=== PATIENT | male | born 1940 | race Caucasian/White ===

== ENCOUNTER 2019-09-02 12:30 | Inpatient (IN) | payer MEDICARE ==
[~2019-09-02] VITALS: Ht 182 cm; Wt 85.0 kg
[2019-09-02] VITALS (9 sets, daily range): BP systolic 109–144; BP diastolic 53–99
[~2019-09-02 12:30] MED LIST: ASPI325T32 PO; CARV12.53 PO; CEFU500T5 PO; FURO20TA4 PO; PRAV10TA PO; RAMI5CAP PO
[2019-09-02] MEDS ORDERED: ACETAMINOPHEN 325 MG TABLET PO PRN (14:15)
[2019-09-02] MEDS ORDERED: CATHETER FLUSH 10 ML SYR IV PRN (14:15)
[2019-09-02] MEDS ORDERED: hydrALAZINE (APESOLINE) 20 MG/ML VIAL IV PRN (14:15)
[2019-09-02] MEDS ORDERED: ONDANSETRON 4 MG/2 ML (SDV) Z0FRAN IV PRN (14:15)
[2019-09-02] MEDS ORDERED: BISACODYL 10 MG SUPP (DULCOLAX) PR PRN (14:15)
[2019-09-02] MEDS: ENOXAPARIN 40 MG/0.4 ML (LOVENOX) SYR SC SCH (14:15)
[2019-09-02] MEDS ORDERED: ONDANSETRON 4 MG (ZOFRAN) ORAL DISSOLVE TAB PO PRN (14:15)
[2019-09-02] MEDS ORDERED: polyethylene glycoL POWDER 17 GM (MIRALAX) PACK PO PRN (14:15)
[2019-09-02] MEDS ORDERED: ANTACID SUSP 30 ML UDC (MYLANTA) PO PRN (14:15)
[2019-09-02] MEDS ORDERED: MELATONIN 3 MG TABLET PO PRN (14:15)
--- NOTE | 2019-09-02 14:36 | History & Physical-Hospitalist ---
History of Present Illness HPI/Chief Complaint Rashawn Espinoza is an 79 year old male with PMH HTN who awoke this morning and felt "uncoordinated". He then noticed that his speech was abnormal. He went to the [place] ER and was found to have a likely acute ischemic stroke on CT scan. He was not a candidate for tPA due to unknown time of onset. He was transferred to [facility] for further evaluation and treatment. Upon arrival, his symptoms have resolved. He denies any dizziness or vertigo. He denies any vision changes. He denies any focal weakness. He denies any sensory deficits. He denies any speech difficulties. He denies fevers and chills. He denies dyspnea and cough. He denies chest pain and palpitations. He denies abdominal pain, nausea, vomiting, and diarrhea. He denies dysuria. He is a nonsmoker, nondrinker, and does not use illicit drugs. He reports that his grandmother had a stroke. He is unsure of the medications he takes, but says they are all for high blood pressure and heart failure. He does not take aspirin or a cholesterol medication. Source: patient Exam Limitations: no limitations Date Seen 09/02/19 Time Seen by a Provider: 14:00 Attending Physician Kassie Kim MD PCP Chalino Thomas MD Referring Physician Date of Admission Sep 02, 2019 at 13:37 Home Medications & Allergies Home Medications Reviewed patient Home Medication Reconciliation performed by pharmacy medication reconciliations account technician and/or nursing. Patients Allergies have been reviewed. Allergies Allergies Coded Allergies Zolpidem (Unverified Adverse Reaction, Severe, SEVERE AGITATION AND CONFUSION, 01/02/14) Past Pawmiqj-Ftuxjo-Mvvpxo Hx Past Med/Social Hx: Reviewed Nursing Past Med/Soc Hx Immunizations Up To Date Tetanus Booster (TDap): Less than 5yrs Pediatric: Yes Past Medical History Reproductive: No Musculoskeletal: Chronic Back Pain Adverse Reaction to Blood Matute: No Review of Systems Constitutional: dizziness EENTM: no symptoms reported Respiratory: no symptoms reported Cardiovascular: no symptoms reported Gastrointestinal: no symptoms reported Genitourinary: no symptoms reported Musculoskeletal: no symptoms reported Skin: no symptoms reported Psychiatric/Neurological: Other (speech difficulties) Physical Exam Physical Exam Vital Signs Capillary Refill : Height, Weight, BMI Height: 6'1.00" Weight: 214lbs. 5.0oz. 97.516208ve; 28.10 BMI Method: General Appearance: No Apparent Distress, WD/WN HEENT: PERRL/EOMI, Pharynx Normal Neck: Full Range of Motion, Normal Inspection, Supple Respiratory: Lungs Clear, Normal Breath Sounds, No Respiratory Distress Cardiovascular: Regular Rate, Rhythm, No Edema, No Murmur Gastrointestinal: Normal Bowel Sounds, Non Tender, Soft Extremity: Normal Inspection, Non Tender, No Pedal Edema Neurologic/Psychiatric: Alert, Oriented x3, No Motor/Sensory Deficits, Normal Mood/Affect, deposit refund clerk II-XII Norm as Tested; No Aphasia, No Disoriented, No Facial Droop, No Motor Weakness, No Sensory Deficit Skin: Normal Color, Warm/Dry Results Results/Procedures Labs Patient resulted labs reviewed. Imaging: Reviewed Imaging Report Assessment/Plan Admission Diagnosis Stroke Admission Status: Inpatient Order (span 2 midnights) Reason for Inpatient Admission: Stroke requiring close monitoring, further evaluation and treatment Assessment and Plan Acute ischemic stroke Hypertension -CT scan at [place] with likely acute ischemic stroke -Not a candidate for tPA -Admit to ICU -Neurochecks -Obtain lipid panel -Begin ASA and Lipitor -MRI Brain Wednesday -Echocardiogram Wednesday -Carotid ultrasound Wednesday -Consult TeleICU -Hydralazine as needed to keep SBP <160 -Continue home BP meds -Monitor on telemetry DVT Prophylaxis: Lovenox Critical Care Critically Ill Patient Diagnosis/Problems Diagnosis/Problems (1) Acute ischemic stroke Status: Acute Clinical Quality Measures DVT/VTE Risk/Contraindication: Risk Factor Score Per Nursin RFS Level Per Nursing on Admit: 3=High KASSIE KIM MD Sep 02, 2019 14:36
[2019-09-02] MEDS: inSUlin ASPART (NovoLOG) 1 UNIT/0.01 ML (CHARGE PER UNIT) SC SCH ×2 (16:29→20:19)
[2019-09-02] MEDS: DOCUSATE SODIUM 100 MG (COLACE) CAP PO SCH (20:08)
[2019-09-02] MEDS: CARVEDILOL 12.5 MG (COREG) TABLET PO SCH (20:08)
[2019-09-02] MEDS: SENNOSIDES 8.6 MG (SENOKOT) TAB PO SCH (20:08)
[2019-09-03] VITALS (17 sets, daily range): BP systolic 94–154; BP diastolic 48–83
[2019-09-03 03:12] LABS: BASOPHILS # (AUTO) 0.1 10^3/uL (0.0-0.1); BASOPHILS % (AUTO) 1 % (0-10); EOSINOPHILS # (AUTO) 0.2 10^3/uL (0.0-0.3); EOSINOPHILS % (AUTO) 3 % (0-10); HEMATOCRIT 45 % (40-54); HEMOGLOBIN 15.3 G/DL (13.3-17.7); LYMPHOCYTES # (AUTO) 1.9 X 10^3 (1.0-4.0); LYMPHOCYTES % (AUTO) 24 % (12-44); MEAN CORPUSCULAR HEMOGLOBIN 29 PG (25-34); MEAN CORPUSCULAR HGB CONC 34 G/DL (32-36); MEAN CORPUSCULAR VOLUME 86 FL (80-99); MONOCYTES # (AUTO) 0.9 X 10^3 (0.0-1.0); MONOCYTES % (AUTO) 12 % (0-12); NEUTROPHILS # (AUTO) 4.9 X 10^3 (1.8-7.8); NEUTROPHILS % (AUTO) 61 % (42-75); PLATELET COUNT 214 10^3/uL (130-400); RED CELL DISTRIBUTION WIDTH 13.9 % (10.0-14.5)
[2019-09-03 03:29] LABS: CHLORIDE 104 MMOL/L (98-107); POTASSIUM 4.2 MMOL/L (3.6-5.0); SODIUM 137 MMOL/L (135-145)
[2019-09-03 03:31] LABS: GLUCOSE 92 MG/DL (70-105); TRIGLYCERIDES 152 MG/DL (<150); VLDL CHOLESTEROL 30 MG/DL (5-40)
[2019-09-03 03:32] LABS: CARBON DIOXIDE 22 MMOL/L (21-32)
[2019-09-03 03:35] LABS: CREATININE SERUM 1.13 MG/DL (0.60-1.30); GFR ESTIMATED > 60; PHOSPHORUS 2.9 MG/DL (2.3-4.7)
[2019-09-03 03:36] LABS: BUN/CREATININE RATIO 13; CHOLESTEROL 213 MG/DL (< 200)
[2019-09-03 03:37] LABS: HDL CHOLESTEROL 31 MG/DL (40-60)
[2019-09-03] MEDS: inSUlin ASPART (NovoLOG) 1 UNIT/0.01 ML (CHARGE PER UNIT) SC SCH ×4 (05:52→20:33)
[2019-09-03] MEDS ORDERED: POTASSIUM CL 10MEQ/50ML IVPB 50 ML IV SCH (06:00)
[2019-09-03] MEDS ORDERED: KCL 20 MEQ TAB (K-DUR) PO SCH (06:00)
[2019-09-03] MEDS ORDERED: MAGNESIUM 1 GM/100 ML IVPB 100 ML IV SCH (06:00)
--- NOTE | 2019-09-03 07:29 | Diagnostic Imaging Report ---
Indication: Cardiac pacemaker, dyspnea. Comparison: 01/04/2014 Findings: Single view of the chest demonstrates stable cardiac enlargement. Lungs are clear. There is no pneumothorax. Osseous structures stable. Pacemaker is in good position. Impression: Stable cardiac enlargement without pulmonary edema or infiltrate. Dictated by: Dictated on workstation # [id number]
[2019-09-03] MEDS: ASPIRIN 325 MG (5 GR) TABLET PO SCH (08:54)
[2019-09-03] MEDS: CARVEDILOL 12.5 MG (COREG) TABLET PO SCH ×2 (08:54→20:33)
[2019-09-03] MEDS: RAMIPRIL 5 MG (ALTACE) CAP PO SCH (08:54)
[2019-09-03] MEDS: DOCUSATE SODIUM 100 MG (COLACE) CAP PO SCH ×2 (08:54→20:33)
[2019-09-03] MEDS: FUROSEMIDE 20 MG (LASIX) TAB PO SCH ×2 (08:54→09:00)
[2019-09-03] MEDS: SENNOSIDES 8.6 MG (SENOKOT) TAB PO SCH ×2 (08:54→20:33)
--- NOTE | 2019-09-03 11:40 | Progress Note - Hospitalist ---
Subjective HPI/CC On Admission Date Seen by Provider: Sep 03, 2019 Time Seen by Provider: 09:55 Rashawn Espinoza is an 79 year old male with PMH HTN who awoke this morning and felt "uncoordinated". He then noticed that his speech was abnormal. He went to the [place] ER and was found to have a likely acute ischemic stroke on CT scan. He was not a candidate for tPA due to unknown time of onset. He was transferred to [facility] for further evaluation and treatment. Upon arrival, his symptoms have resolved. He denies any dizziness or vertigo. He denies any vision changes. He denies any focal weakness. He denies any sensory deficits. He denies any speech difficulties. He denies fevers and chills. He denies dyspnea and cough. He denies chest pain and palpitations. He denies abdominal pain, nausea, vomiting, and diarrhea. He denies dysuria. He is a nonsmoker, nondrinker, and does not use illicit drugs. He reports that his grandmother had a stroke. He is unsure of the medications he takes, but says they are all for high blood pressure and heart failure. He does not take aspirin or a cholesterol medication. Subjective/Events-last exam He is having left hand weakness. He reports some dysarthria. He denies any fevers or chills. He denies any shortness of breath or cough. He denies any chest pain or palpitations. He denies any abdominal pain, nausea, or vomiting. He has no other complaints or concerns. Objective Exam Vital Signs Vital Signs Date Time Temp Pulse Resp B/P (MAP) Pulse Ox O2 Delivery O2 Flow Rate FiO2 09/03/19 10:00 90 21 97/83 (88) Room Air 09/03/19 08:00 95 09/03/19 07:27 36.6 Capillary Refill : General Appearance: No Apparent Distress, WD/WN HEENT: PERRL/EOMI, Pharynx Normal Neck: Normal Inspection, Supple Respiratory: Lungs Clear, Normal Breath Sounds, No Respiratory Distress Cardiovascular: Regular Rate, Rhythm, No Edema, No Murmur Gastrointestinal: Normal Bowel Sounds, Non Tender, Soft Extremity: Normal Inspection, Non Tender, No Pedal Edema Neurologic/Psychiatric: Alert, Oriented x3, Normal Mood/Affect, Facial Droop, Motor Weakness (Left hand strength to of 5) Skin: Normal Color, Warm/Dry Results/Procedures Lab Laboratory Tests 09/03/19 03:06 Patient resulted labs reviewed. Imaging: Reviewed Imaging Report Assessment/Plan Assessment and Plan Assess & Plan/Chief Complaint Acute ischemic stroke Hypertension Hyperlipidemia -CT scan at [place] with likely acute ischemic stroke -Not a candidate for tPA -Lipid panel revealed mixed hyperlipidemia -Continue ASA and Lipitor -MRI Brain tomorrow -Echocardiogram tomorrow -Carotid ultrasound tomorrow -Hydralazine as needed to keep SBP <160 -Continue home BP meds -Monitor on telemetry -Continue neurochecks -Transfer to medical floor DVT Prophylaxis: Lovenox Critical Care Critically Ill Patient Diagnosis/Problems Diagnosis/Problems (1) Acute ischemic stroke Status: Acute Clinical Quality Measures DVT/VTE Risk/Contraindication: Risk Factor Score Per Nursin RFS Level Per Nursing on Admit: 3=High GEOVANNA KIM MD Sep 03, 2019 11:40
[2019-09-03] MEDS: ENOXAPARIN 40 MG/0.4 ML (LOVENOX) SYR SC SCH (14:08)
[2019-09-04 04:00] VITALS: BP 107/68
--- NOTE | 2019-09-04 07:32 | Diagnostic Imaging Report ---
EXAMINATION: Chest 1 view HISTORY: Dyspnea. COMPARISON: Chest radiograph on 09/03/2019. FINDINGS: Stable left pectoral ICD. The lung volumes are normal. No focal consolidation is seen. No large pleural effusion or pneumothorax is seen. The cardiomediastinal silhouette is enlarged. No acute osseous abnormality is seen. IMPRESSION: 1. Stable cardiomegaly. No overt pulmonary edema. Dictated by: Dictated on workstation # [id number]
[2019-09-04 08:00] VITALS: BP 117/72
[2019-09-04] MEDS: CARVEDILOL 12.5 MG (COREG) TABLET PO SCH (08:37)
[2019-09-04] MEDS: FUROSEMIDE 20 MG (LASIX) TAB PO SCH (08:37)
[2019-09-04] MEDS: RAMIPRIL 5 MG (ALTACE) CAP PO SCH (08:37)
[2019-09-04] MEDS: DOCUSATE SODIUM 100 MG (COLACE) CAP PO SCH (08:37)
[2019-09-04] MEDS: SENNOSIDES 8.6 MG (SENOKOT) TAB PO SCH (08:37)
[2019-09-04] MEDS: ASPIRIN 325 MG (5 GR) TABLET PO SCH (08:37)
--- NOTE | 2019-09-04 08:47 | Diagnostic Imaging Report ---
PROCEDURE: US carotid duplex, bilateral. TECHNIQUE: Multiple real-time grayscale images were obtained over the carotid arteries in various projections, bilaterally. Additional spectral analysis and color Doppler duplex images were also obtained. INDICATION: Stroke. There appears to be moderate plaque in both carotid bulbs. The velocities are normal bilaterally. No velocity elevation or stenosis is detected. Both vertebral arteries show antegrade flow. IMPRESSION: Moderate bilateral carotid plaque. There is no evidence of a hemodynamically significant stenosis. Parameters based on the consensus panel Ferrari-Scale and Doppler ultrasound criteria published January 2003, Radiology, Volume 229. DOPPLER (peak systolic velocity M/S Right Left CCA 0.60 0.61 ICA Proximal 0.74 0.58 ICA Mid 0.51 0.56 ICA Distal 0.58 0.51 RATIO 1.23 0.95 ECA 1.10 0.66 VERT 0.61 0.30 Dictated by: Dictated on workstation # [id number]
--- NOTE | 2019-09-04 09:53 | Physical Therapy Evaluation ---
PT Evaluation-General Medical Diagnosis Admission Date Sep 02, 2019 at 13:37 Medical Diagnosis: CVA Onset Date: Sep 02, 2019 Therapy Diagnosis Therapy Diagnosis: debility Height/Weight Height (Feet): 6 Height (Inches): 1.00 Weight (Pounds): 214 Weight (Ounces): 5.0 Precautions Precautions/Isolations: Standard Precautions Weight Bear Status Right Lower Extremity: Right Weight Bearing/Tolerated Left Lower Extremity: Left Weight Bearing/Tolerated Referral Physician: Pool Reason for Referral: Evaluation/Treatment Medical History Pertinent Medical History: HTN Current History woke up and felt uncoordinated Reviewed History: Yes Social History Home: Single Level Current Living Status: Spouse Entry Into Home: Stairs With Railing PT Steps Into Home: 3 Prior Prior Level of Function SCALE: Activities may be completed with or without assistive devices. 7-Nplcqyqmjk-ttgzxkd completes the activity by him/herself with no assistance from a helper. 5-Set-up or Clean-up Assistance-helper sets up or cleans up; patient completes activity. [place] assists only prior to or following the activity. 4-Supervision or Touching Assistance-helper provides verbal cues and/or touching/steadying and/or contact guard assistance as patient completes activity. Assistance may be provided throughout the activity or intermittently. 3-Partial/Moderate Assistance-helper does LESS THAN HALF the effort. [place] lifts, holds or supports trunk or limbs, but provides less than half the effort. 2-Substantial/Maximal Assistance-helper does MORE THAN HALF the effort. [place] lifts or holds trunk or limbs and provides more than half the effort. 8-Rsgedadul-ncjoey does ALL the effort. Patient does none of the effort to c omplete the activity. Or, the assistance of 2 or more helpers is required for the patient to complete the activity. If activity was not attempted, code reason: 7-Patient Refused. 9-Not Applicable-not attempted and the patient did not perform the activity before the current illness, exacerbation or injury. 10-Not Attempted due to Environmental Limitations-(lack of equipment, weather restraints, etc.). 88-Not Attempted due to Medical Conditions or Safety Concerns. Bed Mobility: 6 Transfers (B,C,W/C): 6 Gait: 6 Stairs: 6 Indoor Mobility (Ambulation): Independent Stairs: Independent Prior Devices Use: None PT Evaluation-Current Subjective Patient agrees to PT. No c/o and reports he is up independent in room without difficulty. Pain Numeric Pain Scale: 0-No Pain Location: No Pain Reported Objective Patient Orientation: Normal For Age ROM/Strength ROM Lower Extremities bilateral LE WFL Strength Lower Extremities 4+/5 grossly bilateral LE Integumentary/Posture Integumentary refer to nursing notes Bowel Incontinence: No Bladder Incontinence: No Posture erect Neuromuscular (Tone, Coordination, Reflexes) grossly intact with all Sensory Vision: Functional Hearing: Functional Sensation Right Lower Extremit: Intact Sensation Left Lower Extremity: Intact Transfers Roll Left to Right (QC): 6 Sit to Lying (QC): 6 Lying to Sitting/Side of Bed(Q: 6 Sit to Stand (QC): 6 Chair/Znc-ps-Pcudf Xfer(QC): 6 Gait Does the Patient Walk?: Yes Mode of Locomotion: Walk Anticipated Mode of Locomotion: Walk Walk 10 feet (QC): 6 Walk 50 ft with 2 Turns(QC): 6 Walk 150 ft (QC): 6 Distance: 800' Gait Assistive Device: None Comments/Gait Description no deviation Stairs #of Steps: 4 1 Step (curb) (QC): 6 4 Steps (QC): 6 reciprocal pattern with 1 handrail Balance Sitting Static: Normal Sitting Dynamic: Normal Standing Static: Normal Standing Dynamic: Normal Assessment/Needs 79 y.o. male, is currently at independent [facility] with all gross motor skills and does not require skilled therapy intervention. Rehab Potential: Fair PT Plan Treatment/Plan Treatment Plan: Discontinue PT, goals met Treatment Duration: Sep 04, 2019 Frequency: 1 time per week Estimated Hrs Per Day: .25 hour per day Patient and/or Family Agrees t: Yes Time/GCodes Time In: 920 Time Out: 933 Total Billed Treatment Time: 13 Total Billed Treatment 1 visit EVLowC 13 min CHIKA THEODORE PT Sep 04, 2019 09:53
--- NOTE | 2019-09-04 10:00 | Occupational Therapy Eval ---
OT Evaluation-General/PLF Medical Diagnosis Admission Date Sep 02, 2019 at 13:37 Medical Diagnosis: CVA with left hand weakness Onset Date: Sep 02, 2019 Therapy Diagnosis Therapy Diagnosis: Left hand weakness Height/Weight Height (Feet): 6 Height (Inches): 1.00 Weight (Pounds): 214 Weight (Ounces): 5.0 Precautions Precautions/Isolations: Standard Precautions Weight Bear Status Weight Bearing Restriction: Weight Bearing/Tolerated Referral Physician: Dr. Lanza Referral Reason: Activity Tolerance, Self Care, Evaluation/Treatment, Strengthening/ROM Medical History Pertinent Medical History: HTN Reviewed History: Yes Social History Home: Single Level Current Living Status: Spouse Entry Into Home: Stairs With Railing Steps Into Home: 4 ADL-Prior Level of Function SCALE: Activities may be completed with or without assistive devices. 5-Aloltjzpmh-ajmbofb completes the activity by him/herself with no assistance from a helper. 5-Set-up or Clean-up Assistance-helper sets up or cleans up; patient completes activity. [place] assists only prior to or following the activity. 4-Supervision or Touching Assistance-helper provides verbal cues and/or touching/steadying and/or contact guard assistance as patient completes activity. Assistance may be provided throughout the activity or intermittently. 3-Partial/Moderate Assistance-helper does LESS THAN HALF the effort. [place] lifts, holds or supports trunk or limbs, but provides less than half the effort. 2-Substantial/Maximal Assistance-helper does MORE THAN HALF the effort. [place] lifts or holds trunk or limbs and provides more than half the effort. 5-Jdjpnojrc-cdvsuc does ALL the effort. Patient does none of the effort to complete the activity. Or, the assistance of 2 or more helpers is required for the patient to complete the activity. If activity was not attempted, code reason: 7-Patient Refused. 9-Not Applicable-not attempted and the patient did not perform the activity before the current illness, exacerbation or injury. 10-Not Attempted due to Environmental Limitations-(lack of equipment, weather restraints, etc.). 88-Not Attempted due to Medical Conditions or Safety Concerns. ADL PLOF Comments Pt. states that he was fully independent prior to this hospitalization. He does not use assistive devices to ambulate. Pt. rides a bike and drives. Pt lives with spouse who is retired RN. She is in good health. Pt. reports that he has a daughter with special needs that lives with them. Pt. reports that he has a Dr., DIRECTOR A[employer]ET[employer], and OT in the family. Self Care: Independent Functional Cognition: Independent DME/Equipment: Shower [address] Self: Yes OT Current Status Subjective No pain reported. Pt. verbalizes weakness in left hand, mainly 4th/5th digits. Pt. states that it has improved since original CVA. Pt. reports that all other issues have resolved. Appearance Pt. in bed. Alert and oriented. Pt using plastic straw as exercise device for left hand. Mental Status/Objective Patient Orientation: Person, Place, Time, Situation Attachments: IV Current Hand Dominance: Right Upper Extremity ROM bilateral UE WFL at shoulder and elbow level. Slower extension noted in left fingers than right. Pt. able to fully extend when he focused on this. Upper Extremity Coordination Right UE-intact Left UE- decreased coordination noted. Pt. is able to touch all fingers on left to thumb, but this is slow and he has to concentrate on it. Pt. is fully aware of this and reports ways that he has been working on it and will continue to do so. Upper Extremity Strength 4/5 bilateral UE proximally. 5/5 right UE distally. 3/5 left UE distally. ADL-Treatment On/Off Footwear (QC): 6 Other Treatments Pt. in bed when OT entered room. Pt. is able to verbalize what his deficits were after having a CVA, and what has resolved at this time. Pt. verbalizes that he is having no difficulty with vision, feeding, or balance. Pt. transferred supine-sit with Mod I, and sat on side of bed with no difficulty. Pt. able to doff/don slipper socks with no difficulty, and stand at bedside independently with no LOB. Pt. verbalizes that he has been getting up to use restroom. Declines dressing at this time as he only has jeans here. Pt. does report and demonstrate weakness in left hand, particularly with 4th and 5th digit. Pt. verbalizes that he has been exercising them, and that they have gained strength and movement since original CVA. Pt. is able to actively flex/extend them, but movements are slow. Pt. issued theraband, theraputty, and hand sponge for strengthening and fine motor coordination. Pt. is educated in each of these, and verbalizes that he will be using them. Pt. reports that he has many healthcare workers in his family, and that he has seen these items before. Pt. also educated in importance of weightbearing through left UE to provide proprioceptive input. Pt. is sitting on side of bed, beginning to work with PT at end of treatment. All needs met. Education OT Patient Education: Correct positioning, Exercise program, Modified ADL techniques, Progress toward Goal/Update tx plan, Purpose of tx/functional activities, Reviewed precautions, Rehab process, Transfer techniques Teaching Recipient: Patient Teaching Methods: Demonstration, Discussion Response to Teaching: Verbalize Understanding, Return Demonstration OT Custodial Goals Charge Accounts Audit Clerk Goals Time Frame: Sep 04, 2019 Additional Goals: 1-Demonstrate ADL Tasks, 2-Verbalize Understanding, 3- ImproveStrength/Samia 1=Demonstrate adherence to instructed precautions during ADL tasks. 2=Patient will verbalize/demonstrate understanding of assistive devices/modifications for ADL. 3=Patient will improve strength/tolerance for activity to enable patient to perform ADL's. Pt. is independent with movements. Pt. is educated and issued HEP for fine motor coordination and strengthening, to improve overall left hand function. Pt. demonstrates appropriate flexibility and standing balance to complete ADL tasks. No further OT warranted at this time. OT Education/Plan Problem List/Assessment Assessment: No Skilled OT Needs ID'd Discharge Recommendations Plan/Recommendations: Discharge/Goals Met Treatment Plan/Plan of Care Treatment,Training & Education: Yes Plan of Care: OTHER (discharge OT services) Treatment Duration: Sep 04, 2019 Frequency: 1 time per week Estimated Hrs Per Day: .5 hour per day Agreement: Yes Rehab Potential: Good Time/GCodes Start Time: 08:55 Stop Time: 09:20 Total Time Billed (hr/min): 25 Billed Treatment Time 1, EVL x 10minutes, Ex x 15minutes LEIGH LOZANO OT Sep 04, 2019 10:00
[2019-09-04] MEDS ORDERED: CRV25T PO (10:19)
[2019-09-04] MEDS ORDERED: FAMO-119 PO (10:19)
[2019-09-04] MEDS ORDERED: FURO20TA4 PO (10:19)
[2019-09-04] MEDS ORDERED: ASPI325T32 PO (10:19)
[2019-09-04] MEDS ORDERED: RAMI5CAP65 PO (10:19)
--- NOTE | 2019-09-04 10:22 | NUR ---
SPOKE WITH THE PT - HE WANTED ME TO CALL HIS CHEO SINCE SHE KNOWS ABOUT HIS MEDICATIONS. I CALLED [facility], WENT THRU THE EXT MED HISTORY AND CALLED [facility] TO COMPLETE THE MED REC CARVEDILOL 25MG LAST FILLED 01-19-2019 # 180/90DS- CHEO SAID PT TAKES TWICE DAILY AND SAYS HE TAKES IT EVERYDAY. I DID DOCUMENT THE PAST DUE FILL ON THE MED REC FUROSEMIDE 20MG AND RAMIPRIL 5MG WERE BOTH FILLED ON 05-08-2019 #90/90DS- I DOCUMENTED THE PAST DUE FILL ONT HE MED REC FOR BOTH MEDICATIONS OTC MEDS: ASPIRIN 325MG BID
--- NOTE | 2019-09-04 11:17 | NUR ---
IRF Evaluation Order received to evaluate patient for the ARU. Chart review complete and it appears patient is ambulating (800ft, No AD), transferring and completing bed mobility with independence. Dr. Lanza indicates patient will not need inpatient rehab. Thank you for this referral.
[2019-09-04 12:00] VITALS: BP 104/66
[2019-09-04] MEDS ORDERED: CARV12.53 PO (12:03)
[2019-09-04] MEDS ORDERED: ATOR40TA PO (12:03)
[2019-09-04] MEDS ORDERED: ASPI-808 PO (12:03)
--- NOTE | 2019-09-04 12:14 | Discharge Summary ---
Discharge Summary Hospital Course Was the Problem List Reviewed?: Yes Problems/Dx: (1) Acute ischemic stroke Status: Acute Hospital Course Date of Admission: Sep 02, 2019 at 13:37 Admission Diagnosis : Acute ischemic stroke Family Physician/Provider: Chalino Thomas MD Date of Discharge: 09/04/19 Discharge Diagnosis: Acute ischemic stroke Hospital Course: Rashawn Espinoza is an 79-year-old male who presented with weakness and dysphasia and was admitted with acute ischemic stroke. He had a CT scan done at her [facility] which was consistent with stroke. He was transferred to [facility] for ongoing care. He was outside of the window for TPA. He underwent carotid ultrasound which showed moderate carotid stenosis. He underwent an echocardiogram and telemetry monitoring. There is no evidence of atrial fibrillation. He was started on aspirin and Lipitor. His symptoms improved and physical and occupational therapy provided him with stool studies at home. He was discharged home in stable condition. He should follow- up with his primary care physician in about a week. Labs and Pending Lab Test: Laboratory Tests 09/03/19 15:20: Glucometer 91 09/03/19 20:26: Glucometer 110 Microbiology 09/02/19 MRSA Screen - Final, Complete Home Meds Active Lipitor (Atorvastatin Calcium) 40 Mg Tablet 40 Mg PO HS 30 Days Carvedilol 12.5 Mg Tablet 12.5 Mg PO BID 30 Days Aspirin 325 Mg Tablet 325 Mg PO DAILY 30 Days Reported Aspirin EC (Aspirin) 325 Mg Tablet. 325 Mg PO BID Coreg (Carvedilol) 25 Mg Tab 25 Mg PO BID LAST FILLED 01-19-2019 #180/90 DAY SUPPLY Ramipril 5 Mg Capsule 5 Mg PO DAILY LAST FILLED 05-08-2019 #90/ DAY SUPPLY Furosemide 20 Mg Tablet 20 Mg PO DAILY LAST FILLED 05-08-2019 #90/ DAY SUPPLY Pepcid (Famotidine) 20 Mg Tablet 20 Mg PO BID Assessment/Pt Instructions Take medications as prescribed. Begin taking aspirin and Lipitor. Follow-up with your primary care physician and about a week. Discharge Planning: <30 minutes discharge planning Discharge Instructions Discharge Diet: No Restrictions Activity as Tolerated: Yes Pneumonia Vaccine Order Indica: Yes Discharge Physical Examination Vital Signs Vital Signs Date Time Temp Pulse Resp B/P (MAP) Pulse Ox O2 Delivery O2 Flow Rate FiO2 09/04/19 08:00 36.5 63 20 117/72 (87) 94 Room Air General Appearance: No Apparent Distress, WD/WN Respiratory: Lungs Clear, Normal Breath Sounds, No Respiratory Distress Cardiovascular: Regular Rate, Rhythm, No Edema, No Murmur Gastrointestinal: Normal Bowel Sounds, Non Tender, Soft Extremity: Normal Inspection, Non Tender, No Pedal Edema Skin: Normal Color, Warm/Dry Neurologic/Psychiatric: Alert, Oriented x3, Normal Mood/Affect, Motor Weakness (Left upper extremity) Allergies: Coded Allergies: Zolpidem (Unverified Adverse Reaction, Severe, SEVERE AGITATION AND CONFUSION, 01/02/14) Discharge Summary Date of Admission Sep 02, 2019 at 13:37 Date of Discharge Discharge Date: Sep 04, 2019 Discharge Time: 12:14 Admission Diagnosis Stroke Discharge Diagnosis Acute ischemic stroke (1) Acute ischemic stroke Status: Acute Clinical Quality Measures DVT/VTE Risk/Contraindication: Risk Factor Score Per Nursin RFS Level Per Nursing on Admit: 3=High GEOVANNA KIM MD Sep 04, 2019 12:14
[2019-09-04 13:30] VITALS: BP 104/66
== END 2019-09-04 13:30 | disposition home or self-care (01) | DRG 66 ==
LOC: ICU 13:37 → 4TH 09-03 12:33
PROVIDERS: ADMIT Internal Medicine; ATTEND Internal Medicine
DX: I63.9 Cerebral infarction, unspecified (principal); G83.24 Monoplegia of upper limb affecting left nondominant side; R47.01 Aphasia; R29.810 Facial weakness; I11.0 Hypertensive heart disease with heart failure; I50.9 Heart failure, unspecified; E78.2 Mixed hyperlipidemia
CPT/HCPCS: 36415; 71045; 80048; 80061; 82962; 83735; 84100; 85025; 87081; 93306; 93880

== ENCOUNTER → 2020-03-28 | Outpatient (CLI) | payer OTHER, MEDICARE ==
[~2020-03-28] MED LIST changes: +ASPI-808 PO; +ATOR40TA PO; +CRV25T PO; +FAMO-119 PO; +RAMI5CAP65 PO
== END ==
LOC: LABNPT 14:46
PROVIDERS: ATTEND Internal Medicine
DX: U07.1 COVID-19 (principal)
CPT/HCPCS: 87635